=== PATIENT | female | born 1945 | race Two or more races ===

== ENCOUNTER 2024-11-30 07:30 | Inpatient (IN) | payer OTHER ==
[~2024-11-30] VITALS: Ht 160 cm; Wt 73.9 kg
[2024-11-30] MEDS ORDERED: AVAPRO75 MG (08:11)
[2024-11-30] MEDS ORDERED: ASA81 MG PO (08:11)
[2024-11-30] MEDS ORDERED: CRESTOR40 MG (08:11)
[2024-11-30 08:21] VITALS: BP 96/55
[2024-11-30 08:21] LABS: HEMATOCRIT 41.2 % (36.0-45.00); HEMOGLOBIN 13.7 g/dL (12.0-15.00); MEAN CELL VOLUME 86.2 fL (80.00-100.00); MEAN CORPUSCULAR HEMOGLOBIN 28.7 pg (27.00-32.0); MEAN CORPUSCULAR HGB CONC 33.3 g/dl (32.0-36.0); PLATELET COUNT 204 K/uL (150-450); RED BLOOD COUNT 4.78 M/uL (4.00-6.00); RED CELL DISTRIBUTION WIDTH 14.6 % (11.5-14.5)
[2024-11-30 08:24] LABS: PH,URINE 5.5 (5.0-8.0); URINE APPEARANCE Clear; URINE BILIRRUBIN Negative (NEGATIVE); URINE BLOOD Negative; URINE COLOR Yellow; URINE GLUCOSE Negative (NEGATIVE); URINE KETONE Negative (NEGATIVE); URINE LEUKOCYTE Small; URINE NITRATE Negative; URINE PROTEIN Negative (NEGATIVE); URINE UROBILINOGEN 0.2 E.U./dl
[2024-11-30 08:25] LABS: URINE BACTERIA 97.9 uL (0.0-1933); URINE EPITHELIAL CELLS 19.9 uL (0.0-38.8); URINE RBC 4.2 uL (0.0-20.8); URINE WBC 20.2 uL (0.0-23.2)
[2024-11-30 08:26] VITALS: BP 101/65
[2024-11-30 08:37] LABS: COVID-19 AG NEGATIVE (NEGATIVE)
[2024-11-30 08:59] LABS: INR 1.05; PARTIAL THROMBOPLASTIN TIME 26.5 SECONDS (22.0-34.0); PROTHROMBIN TIME 11.4 SECONDS (9.0-11.5)
[2024-11-30 09:14] LABS: BILIRUBIN TOTAL 0.76 mg/dL (0.3-1.2); CHOL HDL RATIO 2.2 (0-5.0); CREATININE SERUM 0.73 mg/dL (0.55-1.02); GFR 76.51; GLOBULINA 3.4 G/DL (2.4-3.5); POTASSIUM 4.05 mEq/L (3.5-5.1); TOTAL PROTEIN 7.4 gm/dL (6.4-8.2)
[2024-11-30 09:29] LABS: RH POSITIVE
[2024-12-06] MEDS ORDERED: VANCOMYCIN HCL 1,000 MG VIAL IV SCH (05:00)
[2024-12-06] MEDS ORDERED: BUPIVACAINE HCL/MPF 0.5% 30ML VIAL ONE (07:11)
[2024-12-06] MEDS ORDERED: KETOROLAC TROMETHAMINE 60 MG VIAL IM ONE ×2 (07:11→08:15)
[2024-12-06] MEDS ORDERED: LIDOCAINE HCL 1%/EPINEPHRINE 20ML VIAL IJ ONE ×2 (07:12→08:15)
[2024-12-06] MEDS ORDERED: VANCOMYCIN HCL 1,000 MG VIAL ONE (07:12)
[2024-12-06] MEDS ORDERED: TRANEXAMIC ACID 100MG/1ML (1000MG) AMPUL IV ONE ×3 (07:12→08:15)
[2024-12-06] MEDS ORDERED: MORPHINE SULFATE 4 MG/ML CARTRIDGE IV ONE (08:15)
[2024-12-06] MEDS ORDERED: VANCOMYCIN HCL 1,000 MG VIAL IR ONE (08:15)
[2024-12-06] MEDS ORDERED: VANCOMYCIN HCL 1,000 MG VIAL IV ONE (08:15)
[2024-12-06] MEDS ORDERED: BUPIVACAINE HCL 30 ML VIAL IJ ONE (08:15)
[2024-12-06] MEDS ORDERED: OxyCODONE HCL 5 MG TABLET (ROXICODONE) PO PRN (09:15)
[2024-12-06] MEDS ORDERED: MORPHINE SULFATE 4 MG/ML CARTRIDGE IV PRN (09:15)
[2024-12-06] MEDS ORDERED: ONDANSETRON HCL 2 MG/ML VIAL IV PRN (09:15)
[2024-12-06] MEDS ORDERED: SODIUM CHLORIDE 0.45 % 1,000 ML IV SCH (09:15)
[2024-12-06] MEDS ORDERED: ACETAMINOPHEN 500 MG GEL..CAP PO SCH (12:00)
[2024-12-06 13:17] VITALS: BP 96/55; O2SAT 97
[2024-12-06] MEDS ORDERED: ENALAPRILAT DIHYDRATE 1.25 MG/ML VIAL IV PRN (15:30)
[2024-12-06 16:11] VITALS: BP 114/72; O2SAT 96
[2024-12-06] MEDS ORDERED: ROSUVASTATIN CALCIUM 20 MG TABLET PO SCH (17:00)
[2024-12-06] MEDS ORDERED: GABAPENTIN 300 MG CAPSULE PO SCH (17:00)
[2024-12-06] MEDS ORDERED: VANCOMYCIN HCL 1,000 MG in 0.9 % SODIUM CHLORIDE 250 ML IV SCH (21:00)
[2024-12-07 01:00] VITALS: BP 93/55; O2SAT 93
[2024-12-07 06:58] LABS: BASO % 0.5 % (0.1-1.2); EOS # 0.27 (0.04-0.54); EOS % 4.2 % (0.7-7.0); HEMATOCRIT 31.3 % (34.1-44.9); HEMOGLOBIN 10.2 g/dL (11.2-15.7); LYMPH # 1.14 (1.18-3.74); LYMPH % 17.9 % (19.3-53.1); MEAN CORPUSCULAR HEMOGLOBIN 28.3 pg (25.6-32.2); MONO # 0.49 (0.24-0.82); MONO % 7.7 % (4.7-12.5); NEUT # 4.43 (1.56-6.13); NEUT % 69.4 % (34.0-71.1); PLATELET COUNT 181 K/uL (163-369); RED BLOOD COUNT 3.61 M/uL (3.93-5.22)
[2024-12-07] MEDS ORDERED: VANCOMYCIN HCL 1,000 MG VIAL ONE ×2 (07:22→19:41)
[2024-12-07 08:00] VITALS: BP 94/62; O2SAT 95
[2024-12-07] MEDS ORDERED: CIPRO500 MG PO (08:31)
[2024-12-07] MEDS ORDERED: PERCOCET 5-3251 EACH PO (08:31)
[2024-12-07] MEDS ORDERED: ELIQUIS2.5 MG PO (08:31)
[2024-12-07] MEDS ORDERED: APIXABAN 2.5 MG TABLET PO SCH (09:00)
[2024-12-07] MEDS ORDERED: IRBESARTAN 75 MG TABLET PO SCH (09:00)
[2024-12-07] MEDS ORDERED: SENNOSIDES 1 TAB TABLET PO SCH (09:00)
[2024-12-07 13:17] LABS: COVID-19 AG NEGATIVE (NEGATIVE)
[2024-12-07 16:41] VITALS: BP 104/64; O2SAT 98
[2024-12-07] MEDS ORDERED: VANCOMYCIN HCL 1,000 MG VIAL IV SCH (21:00)
[2024-12-08 00:32] VITALS: BP 110/69; O2SAT 96
[2024-12-08] MEDS ORDERED: VANCOMYCIN HCL 1,000 MG VIAL ONE ×3 (06:14→15:09)
[2024-12-08 07:06] LABS: BASO % 0.3 % (0.1-1.2); EOS # 0.15 (0.04-0.54); HEMATOCRIT 30.3 % (34.1-44.9); LYMPH # 0.98 (1.18-3.74); LYMPH % 13.2 % (19.3-53.1); MEAN CORPUSCULAR HEMOGLOBIN 28.5 pg (25.6-32.2); MONO # 0.54 (0.24-0.82); MONO % 7.3 % (4.7-12.5); NEUT # 5.68 (1.56-6.13); NEUT % 76.8 % (34.0-71.1); PLATELET COUNT 167 K/uL (163-369); RED BLOOD COUNT 3.51 M/uL (3.93-5.22); RED CELL DISTRIBUTION WIDTH 13.9 % (11.6-14.4)
[2024-12-08 08:00] VITALS: BP 104/67; O2SAT 95
[2024-12-08] MEDS ORDERED: IRON FUM,PS/FOLIC ACID/VITC/B3 1 CAP CAPSULE PO SCH (09:00)
[2024-12-08 16:00] VITALS: BP 133/58; O2SAT 98
== END 2024-12-08 19:06 | DRG 470 ==
LOC: O/R 12-06 04:15 → SURG 12-06 04:15 → SURH 12-06 07:00 → SURG 12-06 12:45
PROVIDERS: ADMIT Orthopaedic Surgery; ATTEND Orthopaedic Surgery
PROC: 0SUD07Z Supplement Left Knee Joint with Autologous Tissue Substitute, Open Approach (ICD-10-PCS; 2024-12-06)
PROC: 0SRD0J9 Replacement of Left Knee Joint with Synthetic Substitute, Cemented, Open Approach (ICD-10-PCS; principal; 2024-12-06 07:00)
DX: M17.12 Unilateral primary osteoarthritis, left knee (principal); M22.12 Recurrent subluxation of patella, left knee; M81.0 Age-related osteoporosis without current pathological fracture; I10 Essential (primary) hypertension

== ENCOUNTER → 2025-01-14 | Emergency (ER) | payer OTHER ==
[~2025-01-14] VITALS: Ht 160 cm; Wt 73.9 kg
[~2025-01-14] MED LIST: ACETAMINOPHEN 500 MG GEL..CAP PO ONE; ASA81 MG PO; AVAPRO75 MG; CIPRO500 MG PO; CIPROFLOXACIN IN 5 % DEXTROSE 400 MG/200 ML PIGGYBAG IV ONE; CIPROFLOXACIN IN 5 % DEXTROSE 400 MG/200 ML PIGGYBAG IV STA; CRESTOR40 MG; DICLOFENAC POTA50 MG PO; ELIQUIS2.5 MG PO; FAMOTIDINE/PF 20 MG/2 ML VIAL ONE; LEVOFLOXACIN750 MG PO; PERCOCET 5-3251 EACH PO
[2025-01-14 15:30] LABS: BASO % 0.4 % (0.1-1.2); EOS # 0.13 (0.04-0.54); EOS % 1.8 % (0.7-7.0); HEMATOCRIT 37.1 % (34.1-44.9); HEMOGLOBIN 11.9 g/dL (11.2-15.7); LYMPH # 1.73 (1.18-3.74); LYMPH % 24.1 % (19.3-53.1); MEAN CORPUSCULAR HEMOGLOBIN 27.4 pg (25.6-32.2); MONO # 0.54 (0.24-0.82); MONO % 7.5 % (4.7-12.5); NEUT # 4.73 (1.56-6.13); NEUT % 65.9 % (34.0-71.1); PLATELET COUNT 288 K/uL (163-369); RED BLOOD COUNT 4.34 M/uL (3.93-5.22); RED CELL DISTRIBUTION WIDTH 13.9 % (11.6-14.4)
[2025-01-14 15:53] LABS: ERYTHROCYTE SEDIMENTATION RATE 43 mm/hr (0-30)
== END | disposition home or self-care (01) ==
LOC: ER 11:22
PROVIDERS: General Practice
DX: M25.562 Pain in left knee (principal); Z88.0 Allergy status to penicillin; L03.116 Cellulitis of left lower limb
CPT/HCPCS: 36415; 73564; 96365; 99283; J0744

== ENCOUNTER 2025-01-16 10:40 | Emergency (ER) | payer OTHER ==
[~2025-01-16] VITALS: Ht 160 cm; Wt 73.9 kg
[~2025-01-16 10:40] MED LIST changes: -ACETAMINOPHEN 500 MG GEL..CAP PO ONE; -CIPROFLOXACIN IN 5 % DEXTROSE 400 MG/200 ML PIGGYBAG IV ONE; -CIPROFLOXACIN IN 5 % DEXTROSE 400 MG/200 ML PIGGYBAG IV STA; -DICLOFENAC POTA50 MG PO; -FAMOTIDINE/PF 20 MG/2 ML VIAL ONE; -LEVOFLOXACIN750 MG PO
[2025-01-16] MEDS ORDERED: CIPROFLOXACIN IN 5 % DEXTROSE 400 MG/200 ML PIGGYBAG IV ONE (11:30)
[2025-01-16] MEDS ORDERED: FAMOtidine 10 MG/ML (4ML VIAL) IV ONE (11:30)
[2025-01-16 12:14] LABS: BASO % 0.5 % (0.1-1.2); EOS # 0.17 (0.04-0.54); EOS % 2.1 % (0.7-7.0); HEMATOCRIT 37.1 % (34.1-44.9); LYMPH # 1.35 (1.18-3.74); MEAN CORPUSCULAR HEMOGLOBIN 27.6 pg (25.6-32.2); MONO % 7.5 % (4.7-12.5); NEUT # 5.78 (1.56-6.13); NEUT % 72.6 % (34.0-71.1); PLATELET COUNT 289 K/uL (163-369); RED BLOOD COUNT 4.34 M/uL (3.93-5.22)
[2025-01-16 12:18] LABS: ERYTHROCYTE SEDIMENTATION RATE 39 mm/hr (0-30)
[2025-01-16 12:28] LABS: URINE APPEARANCE Clear; URINE BILIRRUBIN Negative (NEGATIVE); URINE BLOOD Negative; URINE COLOR Yellow; URINE GLUCOSE Negative (NEGATIVE); URINE KETONE Negative (NEGATIVE); URINE LEUKOCYTE Negative; URINE NITRATE Negative; URINE PROTEIN Negative (NEGATIVE)
[2025-01-16 12:32] LABS: URINE BACTERIA 17.1 uL (0.0-1933); URINE EPITHELIAL CELLS 15.9 uL (0.0-38.8); URINE RBC 3.9 uL (0.0-20.8); URINE WBC 4.5 uL (0.0-23.2)
[2025-01-16 12:36] LABS: URINE CAST 0.14 uL (0.0-1.40)
[2025-01-16 12:49] LABS: ALBUMIN 3.8 gm/dL (3.4-5.0); BILIRUBIN TOTAL 0.49 mg/dL (0.3-1.2); CALCIUM 10.3 mg/dL (8.5-10.1); CREATININE SERUM 0.8 mg/dL (0.55-1.02); GFR 68.84; GLOBULINA 4.2 G/DL (2.4-3.5); POTASSIUM 3.46 mEq/L (3.5-5.1)
[2025-01-16 12:51] LABS: INR 1.1; PARTIAL THROMBOPLASTIN TIME 25.8 SECONDS (22.0-34.0); PROTHROMBIN TIME 11.9 SECONDS (9.0-11.5)
[2025-01-16 12:59] LABS: C-REACTIVE PROTEIN 0.45 MG/DL (0.00-0.29)
[2025-01-16] MEDS ORDERED: LEVOFLOXACIN750 MG PO (17:35)
[2025-01-16] MEDS ORDERED: DICLOFENAC POTA50 MG PO (17:35)
== END 2025-01-16 17:49 | disposition home or self-care (01) ==
LOC: ER 10:40
PROVIDERS: General Practice
DX: M17.2 Bilateral post-traumatic osteoarthritis of knee (principal); M17.12 Unilateral primary osteoarthritis, left knee; M25.562 Pain in left knee; L03.116 Cellulitis of left lower limb; L08.9 Local infection of the skin and subcutaneous tissue, unspecified; Z96.652 Presence of left artificial knee joint; I10 Essential (primary) hypertension; Z88.0 Allergy status to penicillin

== ENCOUNTER 2025-01-20 14:35 | Inpatient (IN) | payer OTHER ==
[~2025-01-20] VITALS: Ht 160 cm; Wt 73.9 kg
[~2025-01-20 14:35] MED LIST changes: +DICLOFENAC POTA50 MG PO; +LEVOFLOXACIN750 MG PO
--- NOTE | 2025-01-20 15:23 | NUR ---
PACIENTE ALERTA Y ORIENTADA X3 LA MISMA REFIERE QUE EL RAMYA LA OPERO EN SILVA Y SE LE INFECTO LA RODILLA IZQUIERDA. S/V ESTABLE AL MOMENTO . PACIENTE EN ESPERA DE EVALUACION MEDICA.
[2025-01-20] MEDS ORDERED: VANCOMYCIN HCL 1,000 MG VIAL IV ONE (16:15)
[2025-01-20 17:00] LABS: BASO % 0.4 % (0.1-1.2); EOS # 0.28 (0.04-0.54); EOS % 4.2 % (0.7-7.0); LYMPH # 1.47 (1.18-3.74); LYMPH % 21.9 % (19.3-53.1); MEAN PLATELET VOLUME 9.50 fl (9.4-12.4); MONO # 0.60 (0.24-0.82); MONO % 8.9 % (4.7-12.5); NEUT # 4.33 (1.56-6.13); NEUT % 64.5 % (34.0-71.1); RED CELL DISTRIBUTION WIDTH 14.3 % (11.6-14.4)
[2025-01-20] MEDS ORDERED: VANCOMYCIN HCL 1,000 MG VIAL ONE (17:00)
--- NOTE | 2025-01-20 17:00 | NUR ---
SE ORIENTA A PTE SOBRE TX MEDICO Y LA MISMA REFIERE ENTENDER Y ACEPTAR. SE COLOCA H/L EN BRAZO DERECHO, SE RECOLECTAN MUESTRAS DE LAB Y SE ADMINISTRAN MEDICAMENTOS MEGAN ORDEN MEDICA.
[2025-01-20 17:06] LABS: ERYTHROCYTE SEDIMENTATION RATE 26 mm/hr (0-30)
[2025-01-20 17:23] LABS: INR 1.03
[2025-01-20 17:28] LABS: URINE APPEARANCE Clear; URINE BILIRRUBIN Negative (NEGATIVE); URINE BLOOD Negative; URINE COLOR Yellow; URINE GLUCOSE Negative (NEGATIVE); URINE KETONE Trace (NEGATIVE); URINE LEUKOCYTE Negative; URINE NITRATE Negative; URINE PROTEIN Negative (NEGATIVE); URINE UROBILINOGEN 0.2 E.U./dl
[2025-01-20 17:31] LABS: URINE BACTERIA 39.1 uL (0.0-1933); URINE EPITHELIAL CELLS 9.0 uL (0.0-38.8); URINE RBC 10.6 uL (0.0-20.8); URINE WBC 2.6 uL (0.0-23.2)
[2025-01-20 17:34] LABS: ALT/SGPT 18.0 U/L (12-78); AST/SGOT 20.0 U/L (15-37); BILIRUBIN TOTAL 0.25 mg/dL (0.3-1.2); BUN CREA RATIO 23.0 (7.0-25.0); CREATININE SERUM 0.93 mg/dL (0.55-1.02); GFR 57.86; GLOBULINA 3.7 G/DL (2.4-3.5); GLUCOSE FASTING 85.0 mg/dL (65-100); OSMOLALITY SERUM 287.0 MOSM/KG (275-295)
[2025-01-20 17:39] LABS: URINE CAST 0.14 uL (0.0-1.40)
[2025-01-20 17:40] LABS: URINE CRYSTALS MODERATE /HPF
[2025-01-20] MEDS ORDERED: VANCOMYCIN HCL 1,000 MG VIAL IV SCH (18:03)
[2025-01-20] MEDS ORDERED: ENOXAPARIN SODIUM 40 MG/0.4 ML SYRINGE SUBCUTANEO SCH (18:06)
[2025-01-20] MEDS ORDERED: ATORVASTATIN CALCIUM 40 MG TABLET PO SCH (18:14)
[2025-01-20] MEDS ORDERED: KETOROLAC TROMETHAMINE 30 MG VIAL IV PRN (18:15)
[2025-01-20] MEDS ORDERED: DEXTROSE 5 %-0.45 % SOD CHLORD 1,000 ML IV SCH (18:15)
[2025-01-20] MEDS ORDERED: IRBESARTAN 150 MG TABLET PO PRN (18:15)
[2025-01-20 23:05] VITALS: BP 101/60; O2SAT 96
[2025-01-21 04:00] VITALS: BP 101/71; O2SAT 97
[2025-01-21] MEDS ORDERED: VANCOMYCIN HCL 1,000 MG VIAL IV SCH (05:00)
[2025-01-21 09:07] VITALS: BP 119/57; O2SAT 98
[2025-01-21] MEDS ORDERED: VANCOMYCIN HCL 5 MG/ML REDILUIDO IV SCH (17:00)
[2025-01-21 18:21] VITALS: BP 107/67; O2SAT 95
[2025-01-22 01:56] VITALS: BP 107/58; O2SAT 97
[2025-01-22] MEDS ORDERED: VANCOMYCIN HCL 1,000 MG VIAL IV SCH (05:00)
[2025-01-22 09:43] VITALS: BP 114/63; O2SAT 96
[2025-01-22 18:01] VITALS: BP 110/70; O2SAT 95
[2025-01-23 01:52] VITALS: BP 138/60; O2SAT 98
[2025-01-23 06:38] LABS: ALT/SGPT 16 U/L (12-78); AST/SGOT 15 U/L (15-37); BILIRUBIN TOTAL 0.39 mg/dL (0.3-1.2); BUN CREA RATIO 23 (7.0-25.0); CREATININE SERUM 0.62 mg/dL (0.55-1.02); GFR 92.38; GLOBULINA 2.7 G/DL (2.4-3.5); GLUCOSE FASTING 94 mg/dL (65-100); OSMOLALITY SERUM 287 MOSM/KG (275-295)
[2025-01-23 06:40] LABS: BASO % 0.8 % (0.1-1.2); EOS # 0.33 (0.04-0.54); EOS % 6.2 % (0.7-7.0); LYMPH # 1.45 (1.18-3.74); LYMPH % 27.3 % (19.3-53.1); MEAN PLATELET VOLUME 10.50 fl (9.4-12.4); MONO # 0.41 (0.24-0.82); MONO % 7.7 % (4.7-12.5); NEUT # 3.08 (1.56-6.13); NEUT % 57.8 % (34.0-71.1); RED CELL DISTRIBUTION WIDTH 14.5 % (11.6-14.4)
[2025-01-23 07:06] LABS: ERYTHROCYTE SEDIMENTATION RATE 14 mm/hr (0-30)
[2025-01-23] MEDS ORDERED: TRAMADOL HCL 50 MG TABLET PO PRN (08:00)
[2025-01-23 08:17] VITALS: BP 112/68
[2025-01-23] MEDS ORDERED: ACETAMINOPHEN 500 MG GEL..CAP PO SCH (09:00)
[2025-01-23 19:44] VITALS: BP 125/66; O2SAT 97
[2025-01-23 23:30] VITALS: BP 122/63; O2SAT 97
[2025-01-24 09:32] VITALS: BP 117/70
[2025-01-24 18:35] VITALS: BP 127/80
[2025-01-25 01:23] VITALS: BP 118/57; O2SAT 99
[2025-01-25 06:15] LABS: BASO % 0.6 % (0.1-1.2); EOS # 0.36 (0.04-0.54); EOS % 6.9 % (0.7-7.0); LYMPH # 1.34 (1.18-3.74); LYMPH % 25.7 % (19.3-53.1); MEAN PLATELET VOLUME 10.50 fl (9.4-12.4); MONO # 0.43 (0.24-0.82); MONO % 8.2 % (4.7-12.5); NEUT # 3.05 (1.56-6.13); NEUT % 58.4 % (34.0-71.1); RED CELL DISTRIBUTION WIDTH 14.6 % (11.6-14.4)
[2025-01-25 06:33] LABS: BUN CREA RATIO 28.0 (7.0-25.0); CREATININE SERUM 0.57 mg/dL (0.55-1.02); GFR 101.8; GLUCOSE FASTING 88.0 mg/dL (65-100); OSMOLALITY SERUM 291.0 MOSM/KG (275-295)
[2025-01-25 09:02] VITALS: BP 153/82; O2SAT 96
== END 2025-01-25 12:33 | disposition home or self-care (01) | DRG 603 ==
LOC: ER 14:35 → MEDI 18:51
PROVIDERS: Emergency Medicine; Internal Medicine Infectious Disease; ADMIT Student in an Organized Health Care Education/Training Program; ATTEND Student in an Organized Health Care Education/Training Program
DX: L03.116 Cellulitis of left lower limb (principal); I10 Essential (primary) hypertension

== ENCOUNTER 2025-02-15 09:11 | Emergency (ER) | payer OTHER ==
[~2025-02-15] VITALS: Ht 162.6 cm; Wt 72.6 kg
[2025-02-15 09:18] VITALS: BP 128/78; O2SAT 98
== END 2025-02-15 11:54 | disposition home or self-care (01) ==
LOC: ER 09:11
DX: G62.9 Polyneuropathy, unspecified (principal); R20.0 Anesthesia of skin; Z88.0 Allergy status to penicillin